=== PATIENT | male | born 1975 | race Caucasian/White ===

== ENCOUNTER 2024-02-22 15:03 | Emergency (ER) | payer OTHER ==
[2024-02-22] MEDS ORDERED: NA CHLORIDE 0.9% 1,000 ML ONE (15:56)
[2024-02-22] MEDS ORDERED: ONDANSETRON 4 MG/2 ML VIAL ONE (15:56)
[2024-02-22] MEDS ORDERED: HYDROMORPHONE HCL 1 MG/ML INJ ONE ×2 (15:56→19:32)
[2024-02-22 16:05] LABS: Absolute Lymphocytes (CBC) 1.3 K/uL (0.7-4.9); Absolute Monocytes 0.6 K/uL (0.1-1.3); Absolute Neutrophil 6.1 K/uL (1.8-8.0); Basophils % 0.2 % (0-1.3); Eosinophils % 0.4 % (0-4.4); Hematocrit 49.6 % (39.6-49.0); Hemoglobin 17.5 g/dL (13.6-17.9); Lymphocytes % 15.9 % (15.3-44.8); MCH 31.7 pg (27.0-35.0); MCHC 35.3 g/dL (32.0-36.0); MCV 89.9 fL (80-100); MPV 7.7 fL (7.6-11.3); Monocytes % 7.8 % (3.3-12.3); Neutrophils % 75.7 % (41.7-73.7); Nucleated Red Blood Cells % 0.1 % (0-0); Platelets 274 thou/uL (152-406); RBC Red Blood Cell Count 5.51 M/uL (4.33-5.43); Red Cell Distribution Width 13.5 % (12.1-15.2)
[2024-02-22 16:20] LABS: Albumin/Globulin Ratio 1.1 (1.1-1.8); Anion Gap 6.8 mEq/L (5.0-15.0); Bilirubin Total 4.4 mg/dL (0.2-1.0); Globulin 3.7 g/dL (2.3-3.5); Potassium 3.8 mEq/L (3.5-5.1); Protein, Total 7.7 g/dL (6.4-8.2)
--- NOTE | 2024-02-22 16:50 | RAD REPORT ---
EXAMINATION: US Abdomen Exam Limited CLINICAL HISTORY: [facility] MAIN N ABD PAIN Bed Name: 13 COMPARISON: None. TECHNIQUE: Limited upper abdominal grayscale and color flow sonographic images. FINDINGS: Gallbladder: Lumen is filled with heterogeneous sludge. No shadowing gallstones. No significant wall thickening. No pericholecystic fluid. Reportedly negative sonographic Alonso sign, however patient is medicated for pain. Bile ducts: No intrahepatic or extrahepatic biliary dilatation. Common bile duct measures 4 mm. Liver: Visualized portions of the liver demonstrate normal echogenicity with no suspicious findings. Fluid: No ascites. IMPRESSION: Gallbladder sludge with no evidence of calculi or cholecystitis.
--- NOTE | 2024-02-22 17:18 | RAD REPORT ---
EXAMINATION: CT Abdomen Pelvis W Contrast CLINICAL INDICATION: Male, 48 years old. ABD PAIN TECHNIQUE: CT abdomen and pelvis was performed, after the administration of IV contrast, as per [facility] protocol. Axial, sagittal and coronal reconstructions were obtained. One or more of the following dose reduction techniques were used: Automated exposure control, adjustment of the mA and k V according to patient size, and iterative reconstruction. Unless otherwise specified, incidental findings do not require dedicated imaging follow-up. COMPARISON: Abdomen ultrasound the same day FINDINGS: LOWER CHEST: The visualized lung bases are clear. LIVER: Normal in size and contour. No focal lesion. BILIARY SYSTEM: Hyperdense sludge within the gallbladder. Mild pericystic fat stranding along the bod y. SPLEEN: Normal size. No focal lesion. PANCREAS: No mass, ductal dilation, or erin-pancreatic fluid. ADRENALS: No discrete thickening or mass. Linear fixation along the limbs of the right adrenal gland, may relate to sequelae of remote hemorrhage. KIDNEYS: Normal size and contour. No hydronephrosis. 2 mm right superior pole nonobstructing calculus . URINARY BLADDER: Compressed limiting evaluation. GASTROINTESTINAL TRACT: No evidence of free air, significant intra-abdominal free fluid, bowel obstru ction or abscess. APPENDIX: Normal appendix. LYMPH NODES: No lymphadenopathy. MUSCULOSKELETAL: No acute or suspicious osseous abnormality. ADDITIONAL FINDINGS: None. IMPRESSION: Mild pericystic fat stranding along the body of the nondistended gallbladder, nonspecific. Please cor relate clinically for evidence of acute cholecystitis. No other acute or concerning abnormalities seen in the abdomen or pelvis.
--- NOTE | 2024-02-22 18:02 | EDPHYS ---
Physician Documentation [facility] Name: Ward Rueda Age: 48 yrs Sex: Male : 1975 Arrival Date: 02/22/2024 Time: 15:03 Bed 13 Private MD: ED Physician Moustapha Penn HPI: 02/21 15:43 This 48 yrs old Male presents to ER via Ambulatory with complaints of Abdominal Pain. sp3 15:43 48-year-old male with history of hypertension, hyperlipidemia presents to the ED with sp3 chief complaint epigastric and right upper quadrant abdominal pain since this morning after eating "a bucket use Kong taco". Patient had a similar flareup after "pounding a double cheeseburger in [place]". He has had no abdominal surgeries. He denies fever, headache, chest pain, shortness of breath, vomiting, diarrhea, inability to pass flatus, lower abdominal pain, flank pain, dysuria or urinary frequency, STI symptoms, rash, syncope, near syncope, known sick contacts, travel history, or any other signs or symptoms on ROS at this time.. Historical: - Allergies: 15:18 No Known Allergies; ll1 - PMHx: 15:18 Hypertensive disorder; Hypercholesterolemia; ll1 - PSHx: 15:18 None; ll1 - Immunization history:: Adult Immunizations up to date. - Infectious Disease History:: Denies. - Social history:: Smoking status: Patient denies any tobacco usage or history of. ROS: 15:44 Constitutional: Negative for fever, chills, and weight loss, Eyes: Negative for injury, sp3 pain, redness, and discharge, ENT: Negative for injury, pain, and discharge, Neck: Negative for injury, pain, and swelling, Cardiovascular: Negative for chest pain, palpitations, and edema, Respiratory: Negative for shortness of breath, cough, wheezing, and pleuritic chest pain, Back: Negative for injury and pain, MS/Extremity: Negative for injury and deformity, Skin: Negative for injury, rash, and discoloration, Neuro: Negative for headache, weakness, numbness, tingling, and seizure, Psych: Negative for depression, anxiety, suicide ideation, homicidal ideation, and hallucinations, Allergy/Immunology: Negative for hives, rash, and allergies, Endocrine: Negative for neck swelling, polydipsia, polyuria, polyphagia, and marked weight changes, Hematologic/Lymphatic: Negative for swollen nodes, abnormal bleeding, and unusual bruising, 15:44 All other systems are negative, Exam: 15:44 Constitutional: This is a well developed, well nourished patient who is awake, alert, sp3 and in no acute distress. Head/Face: Normocephalic, atraumatic. Eyes: Pupils equal round and reactive to light, extra-ocular motions intact. Lids and lashes normal. Conjunctiva and sclera are non-icteric and not injected. Cornea within normal limits. Periorbital areas with no swelling, redness, or edema. Neck: Trachea midline, no thyromegaly or masses palpated, and no cervical lymphadenopathy. Supple, full range of motion without nuchal rigidity, or vertebral point tenderness. No Meningismus. Chest/axilla: Normal chest wall appearance and motion. Nontender with no deformity. No lesions are appreciated. Cardiovascular: Regular rate and rhythm with a normal S1 and S2. No gallops, murmurs, or rubs. Normal PMI, no JVD. No pulse deficits. Respiratory: Lungs have equal breath sounds bilaterally, clear to auscultation and percussion. No rales, rhonchi or wheezes noted. No increased work of breathing, no retractions or nasal flaring. Back: No spinal tenderness. No costovertebral tenderness. Full range of motion. Skin: Warm, dry with normal turgor. Normal color with no rashes, no lesions, and no evidence of cellulitis. MS/ Extremity: Pulses equal, no cyanosis. Neurovascular intact. Full, normal range of motion. Neuro: Awake and alert, GCS 15, oriented to person, place, time, and situation. Cranial nerves II-XII grossly intact. Motor strength 5/5 in all extremities. Sensory grossly intact. Cerebellar exam normal. Normal gait. Psych: Awake, alert, with orientation to person, place and time. Behavior, mood, and affect are within normal limits. 15:44 Abdomen/GI: Mildly distended abdomen noted with epigastric pain and right upper quadrant abdominal pain without peritoneal signs. , Vital Signs: 15:16 BP 160 / 94; Pulse 82; Resp 17; Temp 98; Pulse Ox 100% ; Weight 113.4 kg; Height 6 ft. ll1 2 in. ; Pain 7/10; 17:34 BP 155 / 91; Pulse 77; Resp 17; Pulse Ox 99% on R/A; rs5 18:21 BP 144 / 88; Pulse 74; Resp 17; Pulse Ox 99% on R/A; rs5 19:35 BP 135 / 81; Pulse 77; Resp 17; Temp 98; Pulse Ox 99% on R/A; Pain 3/10; rg5 15:16 Body Mass Index 32.10 (113.40 kg, 187.96 cm) ll1 15:16 Pain Scale: Adult ll1 19:35 Pain Scale: Adult rg5 MDM: 15:19 Medical Screening Exam initiated sp3 15:44 Data reviewed: vital signs, nurses notes, lab test result(s), radiologic studies. ED sp3 course: 48-year-old male with epigastric and right upper quadrant abdominal pain. Differential diagnosis includes cholecystitis, biliary colic, biliary pathology including choledocholithiasis, pancreatitis, gastritis, colitis, functional abdominal pain, bowel obstruction, constipation, among others. I am not highly suspicious for sepsis, shock, aortic pathology or any other critical process at this time. Workup include CT scan of the abdomen pelvis with IV contrast, ultrasound right upper quadrant, general labs, UA and pain and nausea control with meds and IV fluids. Disposition pending workup and patient course.. 17:59 ED course: Discussed with hospitalist and GI at [facility]. They will be performing sp3 MRCP with subsequent ERCP if indicated. Zosyn and IV fluids on board here. Patient will be safely transferred at this time.. 02/21 15:40 Order name: CBC with Diff; Complete Time: 16:43 3 02/21 15:40 Order name: CMP; Complete Time: 16:43 sp3 02/21 15:40 Order name: Lipase; Complete Time: 16:43 3 02/21 15:40 Order name: Urinalysis w/ reflexes; Complete Time: 18:25 sp3 02/21 15:40 Order name: Abdomen Limited US; Complete Time: 17:20 sp3 02/21 15:40 Order name: CT Abd/Pelvis - IV Contrast Only; Complete Time: 17:20 3 02/21 15:40 Order name: IV Saline Lock; Complete Time: 16:36 sp3 02/21 15:40 Order name: Labs collected and sent; Complete Time: 16:36 sp3 02/21 15:40 Order name: NPO; Complete Time: 16:36 sp3 Administered Medications: 16:00 Drug: NS 0.9% IV 1000 ml IV at 1 bolus Per protocol; to be given as a bolus over 60 rs5 minutes Route: IV; Rate: 1 bolus; Site: right antecubital; 17:04 Follow up: Response: No adverse reaction; IV Status: Completed infusion; IV Intake: rs5 999ml 16:00 Drug: HYDROmorphone IVP 1 mg IVP once Route: IVP; Site: right antecubital; rs5 16:20 Follow up: Response: No adverse reaction; Pain is decreased rs5 16:20 Drug: Ondansetron IVP 4 mg IVP once; over 2 minutes Route: IVP; Site: right antecubital;rs5 16:40 Follow up: Response: No adverse reaction; Nausea is decreased rs5 18:17 Follow up: Response: No adverse reaction rs5 18:00 Drug: Piperacillin-Tazobactam IVPB 3.375 grams IVPB once over 60 mins; (mix in NS 100 rs5 mL) Route: IVPB; Infused Over: 60 mins; Site: right antecubital; 18:19 Follow up: Response: No adverse reaction; IV Status: Completed infusion; IV Intake: rs5 100ml 19:35 Drug: HYDROmorphone IVP 1 mg IVP once Route: IVP; Site: right antecubital; rs5 20:30 Follow up: Response: No adverse reaction; Pain is decreased rg5 Disposition Summary: 02/22/24 18:01 Transfer Ordered Notes: Transfer Location: [facility] sp3 Reason: Higher level of care sp3 Condition: Stable sp3 Problem: new sp3 Symptoms: have worsened sp3 Accepting Physician: [facility] Hospitalist and GI(02/22/24 20:41) rg5 Diagnosis - Right upper quadrant abdominal pain, elevated LFTs, cholangitis, gallbladder sludge sp3 Forms: - Medication Reconciliation Form sp3 - SBAR form sp3 Signatures: Dispatcher [employer] EDMary Tate RN RN ll1 Moustapha Penn MD MD sp3 Dave Richmond RN RN rs5 Quincy Rehman RN RN rg5 Corrections: (The following items were deleted from the chart) 15:18 15:17 Allergies: Latex, Natural Rubber; ll1 ll1 15:18 15:17 Allergies: juan nuts; ll1 ll1 : 15:17 PMHx: Hypertensive disorder; ll1 ll1 15: 15:17 PMHx: Hypercholesterolemia; ll1 ll1 15: 15:17 PMHx: GERD; ll1 ll1 15: 15:17 PSHx: None; ll1 ll1 20:41 18:01 [facility] Hospitalist and GI sp3 rg5
--- NOTE | 2024-02-22 18:02 | ER ---
Nurse's Notes [facility] Name: Ward Rueda Age: 48 yrs Sex: Male : 1975 Arrival Date: 02/22/2024 Time: 15:03 Bed 13 Private MD: Diagnosis: Right upper quadrant abdominal pain, elevated LFTs, cholangitis, gallbladder sludge Presentation: 02/21 15:16 Chief complaint: Patient states: Abdominal pain with nausea started today after eating ll1 a buccees taco. Coronavirus screen: Client denies travel out of the [place] in the last 14 days. At this time, the client does not indicate any symptoms associated with coronavirus-19. Ebola Screen: Patient denies travel to an Ebola-affected area in the 21 days before illness onset. Initial Sepsis Screen: Does the patient meet any 2 criteria? No. Patient's initial sepsis screen is negative. Does the patient have a suspected source of infection? No. Patient's initial sepsis screen is negative. Risk Assessment: Do you want to hurt yourself or someone else? Patient reports no desire to harm self or others. Onset of symptoms was February 22, 2024. 15:16 Method Of Arrival: Ambulatory ll1 15:16 Acuity: LUIS 3 ll1 Triage Assessment: 15:17 General: Appears distressed, uncomfortable, Behavior is calm, cooperative, appropriate ll1 for age. Pain: Complains of pain in abdomen. GI: Reports lower abdominal pain, upper abdominal pain, nausea. Historical: - Allergies: 15:18 No Known Allergies; ll1 - PMHx: 15:18 Hypertensive disorder; Hypercholesterolemia; ll1 - PSHx: 15:18 None; ll1 - Immunization history:: Adult Immunizations up to date. - Infectious Disease History:: Denies. - Social history:: Smoking status: Patient denies any tobacco usage or history of. Screenin:15 [facility] ED Fall Risk Assessment (Adult) History of falling in the last 3 months, rs5 including since admission No falls in past 3 months (0 pts) Confusion or Disorientation No (0 pts) Intoxicated or Sedated No (0 pts) Impaired Gait No (0 pts) Mobility Assist Device Used No (0 pt) Altered Elimination No (0 pt) Score/Fall Risk Level 0 - 2 = Low Risk Oriented to surroundings, Maintained a safe environment. Abuse screen: Denies threats or abuse. Nutritional screening: No deficits noted. Tuberculosis screening: No symptoms or risk factors identified. Assessment: 15:17 General: Appears in no apparent distress. uncomfortable, Behavior is calm, cooperative. rs5 Pain: Complains of pain in abdomen Pain currently is 8 out of 10 on a pain scale. Quality of pain is described as aching, Is continuous. Neuro: Level of Consciousness is awake, alert, obeys commands, Oriented to person, place, time, situation. Cardiovascular: Patient's skin is warm and dry. Respiratory: Airway is patent Respiratory effort is even, unlabored, Respiratory pattern is regular, symmetrical. GI: Abdomen is round non-distended, Bowel sounds present X 4 quads. Abd is soft and non tender X 4 quads. : No signs and/or symptoms were reported regarding the genitourinary system. EENT: No signs and/or symptoms were reported regarding the EENT system. Derm: Skin is intact, Skin is pink, warm \T\ dry. Musculoskeletal: Range of motion: intact in all extremities. 16:33 Reassessment: Patient and/or family updated on plan of care and expected duration. Pain rs5 level reassessed. Patient is alert, oriented x 3, equal unlabored respirations, skin warm/dry/pink. Patient states feeling better. 17:44 Reassessment: Patient and/or family updated on plan of care and expected duration. Pain rs5 level reassessed. Patient is alert, oriented x 3, equal unlabored respirations, skin warm/dry/pink. 18:21 Reassessment: Patient and/or family updated on plan of care and expected duration. Pain rs5 level reassessed. Patient is alert, oriented x 3, equal unlabored respirations, skin warm/dry/pink. 19:09 Reassessment: Patient and/or family updated on plan of care and expected duration. Pain rs5 level reassessed. Patient is alert, oriented x 3, equal unlabored respirations, skin warm/dry/pink. succesful attempt to call report. report given to shift superintendent nurse . 19:35 Reassessment: No changes from previously documented assessment. Patient and/or family rg5 updated on plan of care and expected duration. Pain level reassessed. Patient is alert, oriented x 3, equal unlabored respirations, skin warm/dry/pink. 20:35 Reassessment: Patient and/or family updated on plan of care and expected duration. Pain rg5 level reassessed. Patient is alert, oriented x 3, equal unlabored respirations, skin warm/dry/pink. Vital Signs: 15:16 BP 160 / 94; Pulse 82; Resp 17; Temp 98; Pulse Ox 100% ; Weight 113.4 kg; Height 6 ft. ll1 2 in. ; Pain 7/10; 17:34 BP 155 / 91; Pulse 77; Resp 17; Pulse Ox 99% on R/A; rs5 18:21 BP 144 / 88; Pulse 74; Resp 17; Pulse Ox 99% on R/A; rs5 19:35 BP 135 / 81; Pulse 77; Resp 17; Temp 98; Pulse Ox 99% on R/A; Pain 3/10; rg5 15:16 Body Mass Index 32.10 (113.40 kg, 187.96 cm) ll1 15:16 Pain Scale: Adult ll1 19:35 Pain Scale: Adult rg5 ED Course: 15:05 Patient arrived in ED. al6 15:15 Patient has correct armband on for positive identification. Placed in gown. Bed in low rs5 position. Call light in reach. Side rails up X2. 15:17 Triage completed. ll1 15:17 No provider procedures requiring assistance completed. Inserted saline lock: 20 gauge rs5 in right antecubital area, using aseptic technique. Blood collected. Flushed with 10 mL NS. 15:19 Moustapha Penn MD is Attending Physician. sp3 15:19 Arm band placed on. ll1 15:40 Dave Richmond, NGUYỄN is Primary Nurse. rs5 16:24 Abdomen Limited US In Process Unspecified. EDMS 16:45 CT Abd/Pelvis - IV Contrast Only In Process Unspecified. EDMS 17:25 called [facility]' for transfer talked to Liliana. sp 19:17 1758 Evelio Henry accepted pt to [facility] 880 Samara Munson RN TC admin sp approval to 9 tower unit bed # [id number]. report number [phone]. [facility] to transport. 20:40 Provided Education on: need for transfer. rg5 20:40 Patient transferred, IV remains in place. rg5 Administered Medications: 16:00 Drug: NS 0.9% IV 1000 ml IV at 1 bolus Per protocol; to be given as a bolus over 60 rs5 minutes Route: IV; Rate: 1 bolus; Site: right antecubital; 17:04 Follow up: Response: No adverse reaction; IV Status: Completed infusion; IV Intake: rs5 999ml 16:00 Drug: HYDROmorphone IVP 1 mg IVP once Route: IVP; Site: right antecubital; rs5 16:20 Follow up: Response: No adverse reaction; Pain is decreased rs5 16:20 Drug: Ondansetron IVP 4 mg IVP once; over 2 minutes Route: IVP; Site: right antecubital;rs5 16:40 Follow up: Response: No adverse reaction; Nausea is decreased rs5 18:17 Follow up: Response: No adverse reaction rs5 18:00 Drug: Piperacillin-Tazobactam IVPB 3.375 grams IVPB once over 60 mins; (mix in NS 100 rs5 mL) Route: IVPB; Infused Over: 60 mins; Site: right antecubital; 18:19 Follow up: Response: No adverse reaction; IV Status: Completed infusion; IV Intake: rs5 100ml 19:35 Drug: HYDROmorphone IVP 1 mg IVP once Route: IVP; Site: right antecubital; rs5 20:30 Follow up: Response: No adverse reaction; Pain is decreased rg5 Medication: 18:21 VIS not applicable for this client. rs5 Intake: 17:04 IV: 999ml; Total: 999ml. rs5 18:19 IV: 100ml; Total: 1099ml. rs5 Outcome: 18:01 ER care complete, transfer ordered by sp3 20:40 Transferred by ground EMS to [facility], [facility], rg5 20:40 Condition: stable 20:40 Instructed on the need for transfer, 20:41 Patient left the ED. rg5 Signatures: Dispatcher [employer] EDMS Celia Parr Lynsay, RN RN ll1 Moustapha Penn MD MD sp3 Dave Richmond RN RN rs5 Qunicy Rehman RN RN rg5 Simi Jade al6 Corrections: (The following items were deleted from the chart) 15:18 15:17 Allergies: Latex, Natural Rubber; ll1 ll1 15:18 15:17 Allergies: juan nuts; ll1 ll1 15:18 15:17 PMHx: Hypertensive disorder; ll1 ll1 15:18 15:17 PMHx: Hypercholesterolemia; ll1 ll1 15:18 15:17 PMHx: GERD; ll1 ll1 15:18 15:17 PSHx: None; ll1 ll1 17:33 15:16 Pulse 82bpm; Resp 17bpm; Pulse Ox 100%; Temp 98F; 113.4 kg; Height 6 ft. 2 in.; ll1 BMI: 32.1; Pain 08/20, Adult; ll1
[2024-02-22] MEDS ORDERED: PIPERACIL/TAZO 3.375 GM VIAL IV ONE (18:10)
[2024-02-22] MEDS ORDERED: NA CHLORIDE 0.9% 100 ML ONE (18:11)
[2024-02-22 18:23] LABS: Specific Gravity 1.026 (1.005-1.030); Sqamous Epithelial None Seen /HPF (None Seen); Urine Bacteria <20 /HPF (<20); Urine Bilirubin NEGATIVE (Negative); Urine Blood Negative (Negative); Urine Clarity Clear (Clear); Urine Color Yellow (Yellow); Urine Culture Reflex Order NOT NEEDED; Urine Glucose NEGATIVE (Negative); Urine Ketones NEGATIVE (Negative); Urine Microscopic Reflex YN ORDER UMIC; Urine Mucus Slight /HPF (None Seen); Urine Nitrite NEGATIVE (Negative); Urine Protein TRACE (Negative); Urine RBC <5 /HPF (None Seen); Urine Urobilinogen 3+ (Normal); Urine WBC <5 /HPF (<5)
[2024-02-25 15:34] VITALS: BP 135/81; TEMP 98; O2SAT 99
== END 2024-02-22 20:41 | disposition short-term general hospital (02) ==
LOC: ER 15:03
DX: K83.09 Other cholangitis (principal); K82.8 Other specified diseases of gallbladder; R79.89 Other specified abnormal findings of blood chemistry; I10 Essential (primary) hypertension; E78.00 Pure hypercholesterolemia, unspecified
CPT/HCPCS: 96365; 96361; 85025; 81001; 36415; 83690; 80053; 74177; 76705; 96375; 99285; Q9967; J2543; J1171 ×2; J2405; J7030